=== PATIENT | male | born 1965 | race Caucasian/White ===

== ENCOUNTER 2023-10-15 10:13 | Observation (INO) | payer BC ==
[2023-10-15] MEDS ORDERED: Lidocaine 1% PF 5 ML VIAL ONE (11:00)
[2023-10-15] MEDS ORDERED: PROPOFOL 200 MG/20 ML VIAL ONE (11:00)
[2023-10-15] MEDS ORDERED: Ipratropium/Albuterol 3 ML NEB ONE ×2 (11:53→13:57)
[2023-10-15 16:32] LABS: #Basophils 0.04 10x3/uL (0.0-0.2); #Eosinphils Less than 0.03 10x3/uL (0.0-0.7); %Basophils 0.3 % (0.0-1.0); %Eosinophils 0.1 % (0.0-10.0); %Lymphocytes 2.7 % (21.0-51.0); %Monocytes 5.1 % (0.0-10.0); %Neutrophils 91.3 % (42.0-75.0); Hematocrit 46.4 % (42.0-52.0); Mean Corpuscular HGB CONC 34.5 g/dL (32.0-36.0); Mean Corpuscular Hemoglobin 30.2 pg (27.0-31.0); Mean Corpuscular Volume 87.5 fL (78.0-98.0); Platelet Count 281 10x3/uL (130-400); RBC Distribution Width 12.6 % (11.5-14.5)
[2023-10-15 16:57] LABS: Globulin 3.5 g/dL (2.4-3.5)
[2023-10-15 16:57] LABS: Bacteria/HPF None Seen HPF (None Seen); Bilirubin Negative (Negative); Blood, Urine Negative (Negative); Clarity Clear (Clear); Glucose, Urine (Dipstick) Normal (Negative); Ketone, Urine 10 mg/dL (Negative); Leukocyte Negative Leu/uL (Negative); Nitrite Negative (Negative); Protein, Urine (Dipstick) Negative (Neg-Trace); RBC/HPF None Seen HPF (0-3); Squamous Epithelial None Seen HPF (0-3); Urobilinogen Normal mg/dL (Less than 2); WBC/HPF 0-3 HPF (0-3)
[2023-10-15] MEDS ORDERED: Piperacillin/Tazobactam 3.375 GM VIAL ONE (17:00)
[2023-10-15] MEDS ORDERED: Sodium Chloride 0.9% 100 ML ONE (17:00)
[2023-10-15 17:01] LABS: ALT (SGPT) 33 U/L (8-55); AST (SGOT) 30 U/L (5-34); Albumin 4.2 g/dL (3.5-5.0); Alkaline Phosphatase 49 U/L (40-110); Anion Gap 19 mmol/L (10-20); BUN (Urea Nitrogen) 16 mg/dL (8.4-25.7); Bilirubin, Total 1.3 mg/dL (0.2-1.2); Calc. Creatinine Clearance 118 mL/min (70-130); Calcium 9.6 mg/dL (7.8-10.44); Carbon Dioxide 18 mmol/L (22-29); Chloride 100 mmol/L (98-107); Estimated GFR 95; Glucose 82 mg/dL (70-105); Potassium 4.2 mmol/L (3.5-5.1); Protein, Total 7.7 g/dL (6.0-8.3); Sodium 133 mmol/L (136-145)
[2023-10-15] MEDS ORDERED: fentaNYL 50 mcg/mL 1 mL Vial SLOW IVP PRN (18:05)
[2023-10-15] MEDS ORDERED: Naproxen 500 MG TAB PO PRN (18:08)
[2023-10-15 18:21] VITALS: BMI 33.2
[2023-10-15] MEDS: Ipratropium/Albuterol 3 ML NEB NEB SCH (19:00)
[2023-10-15] MEDS: Budesonide 0.5 MG/2 ML NEB INH SCH (19:00)
[2023-10-15 20:40] LABS: Lactic Acid 2.2 mmol/L (0.5-2.2)
[2023-10-15] MEDS: Sodium Chloride 0.9% 1,000 ML IV SCH (21:20)
[2023-10-15] MEDS: Piperacillin/Tazobactam 3.375 GM in Sodium Chloride 0.9% 100 ML IVPB SCH (21:20)
[2023-10-15] MEDS ORDERED: Acetaminophen 325 MG TAB PO PRN (23:09)
[2023-10-15] MEDS ORDERED: Ondansetron PF 4 MG/2 ML Vial IVP PRN (23:09)
[2023-10-16 04:20] LABS: #Basophils 0.04 10x3/uL (0.0-0.2); %Basophils 0.2 % (0.0-1.0); %Eosinophils 0.6 % (0.0-10.0); %Lymphocytes 8.6 % (21.0-51.0); %Monocytes 7.1 % (0.0-10.0); %Neutrophils 82.9 % (42.0-75.0); Hematocrit 40.4 % (42.0-52.0); Hemoglobin 13.9 g/dL (14.0-18.0); Mean Corpuscular HGB CONC 34.4 g/dL (32.0-36.0); Mean Corpuscular Hemoglobin 30.5 pg (27.0-31.0); Mean Corpuscular Volume 88.8 fL (78.0-98.0); Mean Platelet Volume 9.4 fL (7.4-10.4); Platelet Count 274 10x3/uL (130-400); RBC Distribution Width 12.6 % (11.5-14.5); Red Blood Cell (RBC) Count 4.55 mill/uL (4.70-6.10)
[2023-10-16 04:49] LABS: Anion Gap 13 mmol/L (10-20); BUN (Urea Nitrogen) 17 mg/dL (8.4-25.7); Calc. Creatinine Clearance 97 mL/min (70-130); Calcium 9.1 mg/dL (7.8-10.44); Carbon Dioxide 25 mmol/L (22-29); Chloride 102 mmol/L (98-107); Estimated GFR 77; Glucose 99 mg/dL (70-105); Sodium 136 mmol/L (136-145)
[2023-10-16] MEDS: guaiFENesin ER 600 MG TAB PO SCH (08:53)
[2023-10-16 12:31] VITALS: TEMP 98.4
[2023-10-16 16:00] VITALS: BP 127/78
== END 2023-10-16 18:35 | disposition home or self-care (01) ==
LOC: SDC 10:13 → 2NO 15:25
PROVIDERS: ADMIT Internal Medicine Gastroenterology; ATTEND Internal Medicine Gastroenterology
PROC: 0DBN8ZZ Excision of Sigmoid Colon, Via Natural or Artificial Opening Endoscopic (ICD-10-PCS; principal; 2023-10-16)
DX: Z12.11 Encounter for screening for malignant neoplasm of colon (principal); D12.5 Benign neoplasm of sigmoid colon; K57.30 Diverticulosis of large intestine without perforation or abscess without bleeding; K64.9 Unspecified hemorrhoids; J69.0 Pneumonitis due to inhalation of food and vomit; D72.829 Elevated white blood cell count, unspecified; F17.290 Nicotine dependence, other tobacco product, uncomplicated; Z79.899 Other long term (current) drug therapy
CPT/HCPCS: 36415; 36416; 71045; 80048; 80053; 81001; 83605; 85025; 87040; 87077; 88305; 94640; J2543; J2704; J3490; J7050; J7620; J7626